=== PATIENT | male | born 1960 | race Asian ===

== ENCOUNTER 2017-08-13 10:23 | Inpatient (IN) | payer BC ==
[2017-08-13] MEDS ORDERED: KETOROLAC 30 MG INJ IV (11:05)
[2017-08-13] MEDS: SOD CHLORIDE 0.9% 1,000 ML IV ×2 (11:15→15:47)
[2017-08-13 11:23] LABS: ADD MAN DIFF? NO
[2017-08-13 11:30] LABS: WHITE BLOOD COUNT 23.5 10^3/ul (4.8-10.8)
[2017-08-13 11:30] LABS: ABNORMAL IP MESSAGE 1; BASOPHILS % 0.2 % (0.0-2.0); HEMATOCRIT 44.8 % (42.0-52.0); HEMOGLOBIN 15.1 g/dl (14.0-18.0); LYMPHOCYTES # 1.9 10^3/ul (0.8-2.9); LYMPHOCYTES % 7.9 % (15.0-51.0); MEAN CORPUSCULAR HEMOGLOBIN 30.5 pg (29.0-33.0); MEAN CORPUSCULAR HGB CONC 33.7 g/dl (32.0-37.0); MEAN CORPUSCULAR VOLUME 90.5 fl (82.0-101.0); MEAN PLATELET VOLUME 10.4 fl (7.4-10.4); MONOCYTE # 2.1 10^3/ul (0.3-0.9); MONOCYTES % 8.7 % (0.0-11.0); NEUTROPHIL # 19.4 10^3/ul (1.6-7.5); NEUTROPHILS % 82.5 % (39.0-77.0); PLATELET COUNT 226 10^3/UL (140-415); POSITIVE DIFF @See below; RED BLOOD COUNT 4.95 10^6/ul (4.70-6.10); RED CELL DISTRIBUTION WIDTH 13.5 % (11.5-14.5)
[2017-08-13 11:44] LABS: ALANINE AMINOTRANSFERASE 30 IU/L (13-69); ALBUMIN 4.2 g/dl (3.3-4.9); ALKALINE PHOSPHATASE 63 IU/L (42-121); ANION GAP 16 (8-16); ASPARTATE AMINO TRANSFERASE 18 IU/L (15-46); BILIRUBIN,INDIRECT 1.2 mg/dl (0-1.1); BILIRUBIN,TOTAL 1.2 mg/dl (0.2-1.3); BLOOD UREA NITROGEN 25 mg/dl (7-20); CALCIUM 8.8 mg/dl (8.4-10.2); CARBON DIOXIDE 29 mmol/L (21-31); CHLORIDE 96 mmol/L (97-110); CREATININE 1.46 mg/dl (0.61-1.24); GLUCOSE 117 mg/dl (70-220); LIPASE 36 U/L (23-300); POTASSIUM 4.2 mmol/L (3.5-5.1); SODIUM 137 mmol/L (135-144)
[2017-08-13 13:20] LABS: ADD UMIC NO; UR ASCORBIC ACID 40 mg/dL (NEGATIVE); UR BILIRUBIN (Dip) NEGATIVE (NEGATIVE); UR BLOOD (Dip) NEGATIVE (NEGATIVE); UR CLARITY SLIGHTLY CLOUDY (CLEAR); UR COLOR AMBER (YELLOW); UR GLUCOSE (Dip) NEGATIVE (NEGATIVE); UR KETONES (Dip) NEGATIVE (NEGATIVE); UR LEUKOCYTE ESTERASE (Dip) NEGATIVE Leu/ul (NEGATIVE); UR NITRITE (Dip) NEGATIVE (NEGATIVE); UR RBC 3 /HPF (0-5); UR SPECIFIC GRAVITY (Dip) 1.018 (1.003-1.030); UR TOTAL PROTEIN (Dip) NEGATIVE (NEGATIVE); UR UROBILINOGEN (Dip) NEGATIVE (NEGATIVE); UR WBC 2 /HPF (0-5)
[2017-08-13] MEDS: SODIUM CHLORIDE 0.9% 1L BAG IV* (13:55)
[2017-08-13] MEDS: CEFTRIAXONE 1 GM/50 ML (PMX) 50 ML IVPB (13:55)
[2017-08-13 14:28] LABS: LACTIC ACID 1.2 mmol/L (0.5-2.0)
[2017-08-13 14:28] LABS: INR 1.07; PT RATIO 1.1
[2017-08-13 14:29] LABS: PARTIAL THROMBOPLASTIN TIME 32.7 Sec (25.0-35.0)
[2017-08-13] MEDS: morphine 4 MG/ML VIAL IV (15:01)
[2017-08-13] MEDS ORDERED: ACETAMINOPHEN 325 MG TAB PO (15:30)
[2017-08-13] MEDS ORDERED: BISACODYL (EC) 5 MG TAB PO (15:30)
[2017-08-13] MEDS ORDERED: NACL 0.9% 3 ML SYG IV (15:30)
[2017-08-13] MEDS ORDERED: MAGNESIUM HYDROXIDE 30ML CUP PO (15:30)
[2017-08-13] MEDS ORDERED: ONDANSETRON 4 MG INJ IV (15:30)
[2017-08-13] MEDS ORDERED: morphine 2 MG INJ IV (15:30)
[2017-08-13 16:29] LABS: HEMOGLOBIN A1C 5.8 % (0-5.9)
[2017-08-13 16:59] LABS: LACTIC ACID 1.2 mmol/L (0.5-2.0)
[2017-08-13] MEDS ORDERED: morphine LIQ (10 MG/5 ML) CUP PO (18:00)
[2017-08-13 19:00] LABS: LACTIC ACID 0.8 mmol/L (0.5-2.0)
[2017-08-13] MEDS: POLYETHYLENE GLYCOL 17 GM PACKET PO (21:06)
[2017-08-13] MEDS: TAMSULOSIN (SR) 0.4 MG CAP PO (21:06)
[2017-08-13] MEDS: DOCUSATE SODIUM 100 MG CAP PO (21:07)
[2017-08-13] MEDS: HYDROCODONE/APAP (5/325) TAB PO (21:07)
[2017-08-13] MEDS: HEPARIN 5,000 UNIT/0.5 ML VIAL SC (21:19)
[2017-08-14] MEDS: SOD CHLORIDE 0.9% 1,000 ML IV ×5 (00:08→20:14)
[2017-08-14 06:08] LABS: ADD MAN DIFF? NO
[2017-08-14 06:12] LABS: WHITE BLOOD COUNT 17.6 10^3/ul (4.8-10.8)
[2017-08-14 06:12] LABS: ABNORMAL IP MESSAGE 1; BASOPHILS % 0.2 % (0.0-2.0); EOSINOPHILS % 0.2 % (0.0-7.0); HEMATOCRIT 40.1 % (42.0-52.0); HEMOGLOBIN 13.2 g/dl (14.0-18.0); LYMPHOCYTES # 1.4 10^3/ul (0.8-2.9); LYMPHOCYTES % 8.1 % (15.0-51.0); MEAN CORPUSCULAR HEMOGLOBIN 30.8 pg (29.0-33.0); MEAN CORPUSCULAR HGB CONC 32.9 g/dl (32.0-37.0); MEAN CORPUSCULAR VOLUME 93.5 fl (82.0-101.0); MEAN PLATELET VOLUME 10.4 fl (7.4-10.4); MONOCYTE # 1.5 10^3/ul (0.3-0.9); MONOCYTES % 8.7 % (0.0-11.0); NEUTROPHIL # 14.5 10^3/ul (1.6-7.5); NEUTROPHILS % 82.2 % (39.0-77.0); PLATELET COUNT 175 10^3/UL (140-415); POSITIVE DIFF @See below; RED BLOOD COUNT 4.29 10^6/ul (4.70-6.10); RED CELL DISTRIBUTION WIDTH 13.6 % (11.5-14.5)
[2017-08-14 06:32] LABS: CHOL/HDL RATIO 5.2 RATIO; CHOLESTEROL 177 mg/dl (100-200); HDL CHOLESTEROL 34 mg/dl (28-71); LDL CHOLESTEROL,CALCULATED 124 mg/dl; MAGNESIUM 2.2 mg/dl (1.7-2.5); TRIGLYCERIDES 97 mg/dl (0-149)
[2017-08-14 06:40] LABS: ALANINE AMINOTRANSFERASE 18 IU/L (13-69); ALBUMIN 3.4 g/dl (3.3-4.9); ALBUMIN/GLOBULIN RATIO 1.03; ALKALINE PHOSPHATASE 63 IU/L (42-121); ANION GAP 13 (8-16); ASPARTATE AMINO TRANSFERASE 17 IU/L (15-46); BILIRUBIN,INDIRECT 0.7 mg/dl (0-1.1); BILIRUBIN,TOTAL 0.7 mg/dl (0.2-1.3); BLOOD UREA NITROGEN 24 mg/dl (7-20); CALCIUM 8.1 mg/dl (8.4-10.2); CARBON DIOXIDE 28 mmol/L (21-31); CHLORIDE 104 mmol/L (97-110); CREATININE 1.27 mg/dl (0.61-1.24); GLUCOSE 111 mg/dl (70-220); POTASSIUM 4.5 mmol/L (3.5-5.1); SODIUM 140 mmol/L (135-144); TOTAL PROTEIN 6.7 g/dl (6.1-8.1)
[2017-08-14] MEDS: HEPARIN 5,000 UNIT/0.5 ML VIAL SC ×3 (06:50→21:14)
[2017-08-14] MEDS: DOCUSATE SODIUM 100 MG CAP PO ×2 (08:59→20:11)
[2017-08-14] MEDS: POLYETHYLENE GLYCOL 17 GM PACKET PO ×2 (08:59→20:11)
[2017-08-14] MEDS ORDERED: BISACODYL (EC) 5 MG TAB PO (10:30)
[2017-08-14] MEDS: CEFTRIAXONE 1 GM/50 ML (PMX) 50 ML IVPB (13:35)
[2017-08-14] MEDS: TAMSULOSIN (SR) 0.4 MG CAP PO (20:11)
[2017-08-15] MEDS: SOD CHLORIDE 0.9% 1,000 ML IV ×3 (02:11→18:30)
[2017-08-15] MEDS ORDERED: hydrALAzine 20 MG INJ IV (02:30)
[2017-08-15] MEDS: HEPARIN 5,000 UNIT/0.5 ML VIAL SC ×3 (05:35→21:33)
[2017-08-15 06:08] LABS: ADD MAN DIFF? NO
[2017-08-15 06:13] LABS: WHITE BLOOD COUNT 10.6 10^3/ul (4.8-10.8)
[2017-08-15 06:13] LABS: BASOPHILS % 0.3 % (0.0-2.0); EOSINOPHILS # 0.2 10^3/ul (0.0-0.5); EOSINOPHILS % 1.5 % (0.0-7.0); HEMATOCRIT 39.6 % (42.0-52.0); HEMOGLOBIN 12.7 g/dl (14.0-18.0); LYMPHOCYTES # 1.8 10^3/ul (0.8-2.9); LYMPHOCYTES % 16.6 % (15.0-51.0); MEAN CORPUSCULAR HGB CONC 32.1 g/dl (32.0-37.0); MEAN CORPUSCULAR VOLUME 93.6 fl (82.0-101.0); MEAN PLATELET VOLUME 10.7 fl (7.4-10.4); MONOCYTE # 0.8 10^3/ul (0.3-0.9); MONOCYTES % 7.5 % (0.0-11.0); NEUTROPHIL # 7.8 10^3/ul (1.6-7.5); NEUTROPHILS % 73.7 % (39.0-77.0); PLATELET COUNT 194 10^3/UL (140-415); RED BLOOD COUNT 4.23 10^6/ul (4.70-6.10); RED CELL DISTRIBUTION WIDTH 13.5 % (11.5-14.5)
[2017-08-15 06:38] LABS: ALBUMIN 3.2 g/dl (3.3-4.9); ANION GAP 10 (8-16); BLOOD UREA NITROGEN 12 mg/dl (7-20); CALCIUM 8.2 mg/dl (8.4-10.2); CARBON DIOXIDE 30 mmol/L (21-31); CHLORIDE 109 mmol/L (97-110); CREATININE 0.71 mg/dl (0.61-1.24); GLUCOSE 102 mg/dl (70-220); MAGNESIUM 2.2 mg/dl (1.7-2.5); PHOSPHORUS 3.3 mg/dl (2.5-4.9); POTASSIUM 4.3 mmol/L (3.5-5.1); SODIUM 145 mmol/L (135-144)
[2017-08-15] MEDS: DOCUSATE SODIUM 100 MG CAP PO ×2 (08:30→21:00)
[2017-08-15] MEDS: POLYETHYLENE GLYCOL 17 GM PACKET PO ×2 (08:30→21:00)
[2017-08-15] MEDS: AMLODIPINE 5 MG TAB PO (09:57)
[2017-08-15] MEDS: CEFTRIAXONE 1 GM/50 ML (PMX) 50 ML IVPB (14:18)
[2017-08-15] MEDS: TAMSULOSIN (SR) 0.4 MG CAP PO (21:31)
[2017-08-16] MEDS: SOD CHLORIDE 0.9% 1,000 ML IV ×4 (02:18→20:36)
[2017-08-16] MEDS: HEPARIN 5,000 UNIT/0.5 ML VIAL SC ×3 (04:49→22:05)
[2017-08-16 05:48] LABS: ADD MAN DIFF? NO
[2017-08-16 06:04] LABS: WHITE BLOOD COUNT 7.3 10^3/ul (4.8-10.8)
[2017-08-16 06:04] LABS: BASOPHILS % 0.5 % (0.0-2.0); EOSINOPHILS # 0.3 10^3/ul (0.0-0.5); EOSINOPHILS % 3.5 % (0.0-7.0); HEMATOCRIT 39.1 % (42.0-52.0); HEMOGLOBIN 12.5 g/dl (14.0-18.0); LYMPHOCYTES # 1.7 10^3/ul (0.8-2.9); LYMPHOCYTES % 23.2 % (15.0-51.0); MEAN PLATELET VOLUME 10.5 fl (7.4-10.4); MONOCYTE # 0.7 10^3/ul (0.3-0.9); MONOCYTES % 9.4 % (0.0-11.0); NEUTROPHIL # 4.6 10^3/ul (1.6-7.5); PLATELET COUNT 215 10^3/UL (140-415); RED BLOOD COUNT 4.16 10^6/ul (4.70-6.10); RED CELL DISTRIBUTION WIDTH 13.2 % (11.5-14.5)
[2017-08-16 06:29] LABS: ALBUMIN 3.4 g/dl (3.3-4.9); ANION GAP 16 (8-16); BLOOD UREA NITROGEN 10 mg/dl (7-20); CALCIUM 8.6 mg/dl (8.4-10.2); CARBON DIOXIDE 30 mmol/L (21-31); CHLORIDE 106 mmol/L (97-110); CREATININE 0.78 mg/dl (0.61-1.24); GLUCOSE 102 mg/dl (70-220); MAGNESIUM 1.9 mg/dl (1.7-2.5); PHOSPHORUS 4.3 mg/dl (2.5-4.9); POTASSIUM 4.5 mmol/L (3.5-5.1); SODIUM 147 mmol/L (135-144)
[2017-08-16] MEDS: DOCUSATE SODIUM 100 MG CAP PO ×2 (08:08→20:31)
[2017-08-16] MEDS: POLYETHYLENE GLYCOL 17 GM PACKET PO ×2 (08:08→20:27)
[2017-08-16] MEDS: AMLODIPINE 5 MG TAB PO ×2 (08:16→14:55)
[2017-08-16] MEDS: CEFTRIAXONE 1 GM/50 ML (PMX) 50 ML IVPB (14:00)
[2017-08-16] MEDS ORDERED: MIDAZOLAM 1 MG/ML 2 ML INJ (17:54)
[2017-08-16] MEDS ORDERED: ETOMIDATE 20 MG INJ (19:00)
[2017-08-16] MEDS ORDERED: LIDOCAINE 100 MG SYRINGE (19:00)
[2017-08-16] MEDS ORDERED: PROPOFOL 20 ML (19:00)
[2017-08-16] MEDS ORDERED: ONDANSETRON 4 MG INJ (19:00)
[2017-08-16] MEDS ORDERED: CEFAZOLIN 1 GM INJ (19:00)
[2017-08-16] MEDS: hydrALAzine 20 MG INJ IV (19:19)
[2017-08-16] MEDS ORDERED: MEPERIDINE 25 MG INJ IV (19:30)
[2017-08-16] MEDS ORDERED: DIPHENHYDRAMINE 50 MG INJ IV (19:30)
[2017-08-16] MEDS ORDERED: HYDROmorphONE (0.2 MG/ML) 10ML SYG IV ×2 (19:30)
[2017-08-16] MEDS ORDERED: FENTAnyl 50 MCG/ML VIAL IV (19:30)
[2017-08-16] MEDS ORDERED: METOCLOPRAMIDE 10 MG INJ IV (19:30)
[2017-08-16] MEDS ORDERED: ONDANSETRON 4 MG INJ IV (19:30)
[2017-08-16] MEDS: LEVOFLOXACIN 750MG/D5W (PMX) 150 ML IVPB (20:27)
[2017-08-16] MEDS: TAMSULOSIN (SR) 0.4 MG CAP PO (20:31)
[2017-08-17] MEDS: HEPARIN 5,000 UNIT/0.5 ML VIAL SC (05:25)
[2017-08-17 05:49] LABS: ADD MAN DIFF? NO
[2017-08-17 05:56] LABS: BASOPHILS % 0.4 % (0.0-2.0); EOSINOPHILS # 0.2 10^3/ul (0.0-0.5); EOSINOPHILS % 2.8 % (0.0-7.0); HEMATOCRIT 39.7 % (42.0-52.0); LYMPHOCYTES # 1.4 10^3/ul (0.8-2.9); LYMPHOCYTES % 19.9 % (15.0-51.0); MEAN CORPUSCULAR HEMOGLOBIN 30.5 pg (29.0-33.0); MEAN CORPUSCULAR HGB CONC 32.7 g/dl (32.0-37.0); MEAN CORPUSCULAR VOLUME 93.2 fl (82.0-101.0); MONOCYTE # 0.6 10^3/ul (0.3-0.9); MONOCYTES % 9.1 % (0.0-11.0); NEUTROPHIL # 4.7 10^3/ul (1.6-7.5); NEUTROPHILS % 66.9 % (39.0-77.0); PLATELET COUNT 252 10^3/UL (140-415); RED BLOOD COUNT 4.26 10^6/ul (4.70-6.10)
[2017-08-17 06:19] LABS: ALBUMIN 3.2 g/dl (3.3-4.9); ANION GAP 16 (8-16); BLOOD UREA NITROGEN 16 mg/dl (7-20); CALCIUM 8.5 mg/dl (8.4-10.2); CARBON DIOXIDE 28 mmol/L (21-31); CHLORIDE 105 mmol/L (97-110); CREATININE 0.73 mg/dl (0.61-1.24); GLUCOSE 101 mg/dl (70-220); MAGNESIUM 1.7 mg/dl (1.7-2.5); PHOSPHORUS 5.2 mg/dl (2.5-4.9); POTASSIUM 4.4 mmol/L (3.5-5.1); SODIUM 145 mmol/L (135-144)
[2017-08-17] MEDS: SOD CHLORIDE 0.9% 1,000 ML IV (06:59)
[2017-08-17] MEDS: DOCUSATE SODIUM 100 MG CAP PO (08:14)
[2017-08-17] MEDS: POLYETHYLENE GLYCOL 17 GM PACKET PO (08:15)
[2017-08-17] MEDS: AMLODIPINE 10 MG TAB PO (08:16)
== END 2017-08-17 11:30 | disposition home or self-care (01) | DRG 854 ==
LOC: FTE 10:23 → MS2 16:13
PROC: 0TC78ZZ Extirpation of Matter from Left Ureter, Via Natural or Artificial Opening Endoscopic (ICD-10-PCS; principal; 2017-08-16 17:30)
PROC: 0T778DZ Dilation of Left Ureter with Intraluminal Device, Via Natural or Artificial Opening Endoscopic (ICD-10-PCS; 2017-08-16 17:30)
DX: A41.9 Sepsis, unspecified organism (principal); N13.6 Pyonephrosis; N17.9 Acute kidney failure, unspecified; E66.9 Obesity, unspecified; Z68.34 Body mass index [BMI] 34.0-34.9, adult; K59.00 Constipation, unspecified; F17.210 Nicotine dependence, cigarettes, uncomplicated; E78.5 Hyperlipidemia, unspecified; I10 Essential (primary) hypertension; Z71.3 Dietary counseling and surveillance
CPT/HCPCS: 71045; 74018; 74176; 74430; 80053; 80061; 80069; 81001; 81003; 83036; 83605; 83690; 83735; 84100; 84439; 84443; 85025; 85610; 85730; 87040; 87086; 93005